=== PATIENT | male | born 1990 | race Two or more races ===

== ENCOUNTER 2023-10-27 00:40 | Emergency (ER) | payer BC, OTHER ==
[~2023-10-27] VITALS: Ht 170.2 cm; Wt 86.3 kg
[2023-10-27 00:42] VITALS: BP 137/84; RESP 18; O2SAT 98
[2023-10-27 00:58] LABS: Basophils # (auto) 0.1 10 ^3/uL (0-0.2); Basophils % (auto) 0.6 % (0.0-2.0); Eosinophils # (auto) 0.1 10 ^3/uL (0-0.8); Hemoglobin 15.6 g/dL (13.5-17.5); Lymphocytes # (auto) 5.2 10 ^3/uL (0.4-5.4); Lymphocytes % (auto) 41.7 % (10.0-50.0); Mean Corpuscular Hemoglobin 29.5 pg (28.0-32.0); Mean Corpuscular Hgb Conc. 33.2 g/dL (32.0-36.0); Mean Corpuscular Volume 88.9 fL (80.0-100.0); Neutrophils # (auto) 6.1 10 ^3/uL (1.6-8.6); Neutrophils % (auto) 48.7 % (37.0-80.0); Nucleated Red Blood Cells % 0.1 %; Red Blood Cells 5.29 10^6/uL (4.5-5.90); Red Cell Distribution Width 12.7 % (11.8-14.3); White Blood Cell 12.5 10^3/uL (4.4-10.8)
[2023-10-27 01:15] LABS: Partial Thromboplastin Time 29.6 SEC (24.5-34.5); Prothrombin Time 10.5 sec (9.3-11.8)
[2023-10-27 01:17] LABS: Alanine Aminotransferase 22 U/L (7-40); Albumin 4.7 g/dL (3.2-4.8); Alkaline Phosphatase 129 U/L (46-116); Anion Gap 6 (5-15); Aspartate Aminotransferase 18 U/L (13-40); BUN/Creatinine Ratio 11.5 (10.0-20.0); Bilirubin, Total 0.3 mg/dL (0.2-1.0); Blood Urea Nitrogen 10 mg/dL (9-23); Calcium 9.2 mg/dL (8.7-10.4); Carbon Dioxide 27 mmol/L (20-30); Chloride 106 mmol/L (98-107); Glucose 113 mg/dL (74-106); Magnesium 2.1 mg/dL (1.6-2.6); Sodium 139 mmol/L (136-145)
[2023-10-27 01:18] LABS: Total Protein 7.4 g/dL (5.7-8.2)
[2023-10-27 02:04] VITALS: PULSE 76
[2023-10-27] MEDS ORDERED: ZOFR4T PO (02:06)
[2023-10-27] MEDS ORDERED: FAMO20TA10 PO (02:06)
[2023-10-27] MEDS: SODIUM CHLORIDE 0.9% 1,000 ML IV ONE (02:39)
[2023-10-27] MEDS: HYDROcodone-ACET 5/325MG TAB PO ONE (02:42)
[2023-10-27] MEDS: MAALOX PLUS or MAALOX 30 ML PO ONE (02:42)
[2023-10-27] MEDS: ONDANSETRON HCL 4 MG/2 ML VIAL IV ONE (02:44)
[2023-10-27] MEDS: PANTOPRAZOLE 40 MG/10 ML VIAL INJ IV ONE (02:44)
== END 2023-10-27 03:25 | disposition home or self-care (01) ==
LOC: ER 00:40
DX: K29.00 Acute gastritis without bleeding (principal); R07.89 Other chest pain; Z79.899 Other long term (current) drug therapy
CPT/HCPCS: 36415; 71045; 80053; 83690; 83735; 83880; 84484; 85025; 85610; 85730; 93005; 96361; 96374; 96375; 99285; C9113; J2405; J7030

== ENCOUNTER 2025-06-02 17:59 | Emergency (ER) | payer BC, OTHER ==
[~2025-06-02] VITALS: Ht 170.2 cm; Wt 94.7 kg
[~2025-06-02 17:59] MED LIST: FAMO20TA10 PO; ZOFR4T PO
[2025-06-02 18:00] VITALS: BP 134/95; PULSE 89; RESP 16; TEMP 97.5; O2SAT 94
[2025-06-02] MEDS ORDERED: CYCL-837 PO (19:05)
[2025-06-02] MEDS ORDERED: ACET500T58 PO (19:05)
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
--- NOTE | 2025-06-02 19:31 | DVH ---
Procedure: CT HEAD WITHOUT CONTRAST Study Date and Requested Time: 06/02/2025 06:46 PM History: HEADACHE Comparison: None Dose: CTDI: 52.91 mGy DLP: 755.91 mGycm Technique: Multiplanar images obtained through the brain without intravenous contrast. Findings: Normal brain volume and formation. No hemorrhages, masses, mass effect, midline shift, herniation or cytotoxic edema following a large v ascular territory. No intra-axial or extra-axial fluid collections. No evidence of hydrocephalus. The basal cisterns are patent. The pituitary gland, sella and parasellar regions are unremarkable. The cerebellar tonsils are in nor mal position. The cerebellum is unremarkable. The orbits and globes are unremarkable. The paranasal sinuses and mastoids are clear. There are no wo rrisome calvarial lesions. Impression: No evidence of acute intracranial abnormality.
--- NOTE | 2025-06-02 19:41 | DVH ---
EXAM: CT CERVICAL WITHOUT CONTRAST INDICATION: NECK PAIN EXAM DATE: 06/02/2025 06:50 PM COMPARISON: None TECHNIQUE: Multiple axial CT images of the cervical spine were obtained using bone algorithm. Axial a nd coronal reformatting was done. Bone and soft tissue windows were reviewed. Radiation Dose Information: CT Dose: CTDI volume is 18.16 mGy. Dose-length product is 547.1 mGy*cm Findings: There is no evidence of an acute fracture or spondylolisthesis. The vertebral body heights are well-m aintained. The craniocervical junction and dens are intact. No evidence of degenerative disc disease. No neuroforaminal narrowing. No spinal canal stenosis. There is flattening of the cervical lordosis. The thyroid gland is unremarkable. The lung apices demonstrate no acute abnormality. The paraspinal a nd neck soft tissues appear within normal limits. Impression: 1. No evidence of an acute fracture. 2. Straightening of the cervical lordosis which may be positional versus muscle spasm.
--- NOTE | 2025-06-02 19:43 | DVH ---
CLINICAL INDICATION: LUMBAR BACK PAIN TECHNIQUE: 3 radiographic views of the lumbar spine were obtained. Comparison: None FINDINGS/IMPRESSION: 5 cei-skj-lolriiz lumbar-type vertebrae. Normal alignment of the lumbar spine. Vertebral body height s are maintained. No evidence of acute traumatic fractures or spondylolisthesis. No significant degen erative changes of the lumbar spine. Moderate amount of fecal material within the partially visualiz ed colon.
== END 2025-06-02 20:21 | disposition home or self-care (01) ==
LOC: ER 17:59
DX: S16.1XXA Strain of muscle, fascia and tendon at neck level, initial encounter (principal); S39.012A Strain of muscle, fascia and tendon of lower back, initial encounter; R51.9 Headache, unspecified; V89.2XXA Person injured in unspecified motor-vehicle accident, traffic, initial encounter; Y93.89 Activity, other specified; Y92.410 Unspecified street and highway as the place of occurrence of the external cause; Y99.8 Other external cause status
CPT/HCPCS: 70450; 72100; 72125